=== PATIENT | female | born 1955 | race Caucasian/White ===

== ENCOUNTER 2019-02-27 08:15 | Outpatient (CLI) | payer MEDICARE, OTHER ==
[2019-02-27 08:54] LABS: Bilirubin Negative (Negative); Blood, Urine Negative (Negative); Glucose, Urine (Dipstick) Negative (Negative); Leukocyte Trace (Negative); Nitrite Negative (Negative); Protein, Urine (Dipstick) Negative (Neg-Trace); Urobilinogen 0.2 mg/dL (Less than 2)
[2019-02-27 09:01] LABS: #Eosinphils 0.1 thou/uL (0.0-0.7); #Lymphocytes 1.5 thou/uL (1.20-3.40); #Monocytes 0.5 thou/uL (0.11-0.59); #Neutrophils 2.3 thou/uL (1.40-6.50); %Eosinophils 2.6 % (0.0-10.0); %Lymphocytes 33.6 % (21.0-51.0); %Monocytes 12.1 % (0.0-10.0); %Neutrophils 50.8 % (42.0-75.0); Hemoglobin 15.4 g/dL (12.0-16.0); Mean Corpuscular HGB CONC 33.3 g/dL (32.0-36.0); Mean Corpuscular Hemoglobin 33.5 pg (27.0-31.0); Mean Platelet Volume 7.3 fL (7.4-10.4); Platelet Count 154 thou/uL (130-400); RBC Distribution Width 13.5 % (11.5-14.5); Red Blood Cell (RBC) Count 4.59 mill/uL (4.20-5.40); White Blood Cell (WBC) Count 4.5 thou/uL (4.8-10.8)
[2019-02-27 09:04] LABS: Clarity Slightly Cloudy (Clear)
[2019-02-27 09:20] LABS: ALT (SGPT) 59 U/L (8-55); AST (SGOT) 54 U/L (5-34); Albumin 4.1 g/dL (3.4-4.8); Alkaline Phosphatase 71 U/L (40-150); Anion Gap 19 mmol/L (10-20); BUN (Urea Nitrogen) 7 mg/dL (9.8-20.1); Bilirubin, Total 0.4 mg/dL (0.2-1.2); Calc. Creatinine Clearance 0 mL/min (70-130); Calcium 9.6 mg/dL (7.8-10.44); Carbon Dioxide 23 mmol/L (23-31); Cardiac Risk 2.6 (Less than 4.5); Chloride 101 mmol/L (98-107); Cholesterol 221 mg/dl (< 200 Desired); Estimated GFR-MDRD 88; Globulin 4.4 g/dL (2.4-3.5); Glucose 99 mg/dL (80-115); HDL Cholesterol 86 mg/dL (>60 Neg Risk); LDL Cholesterol, Calculated 104 mg/dL; Potassium 4.1 mmol/L (3.5-5.1); Protein, Total 8.5 g/dL (6.0-8.3); Sodium 139 mmol/L (136-145); Triglycerides 155 mg/dL (Less than 150)
[2019-02-27 09:42] LABS: Thyroid Stimulating Hormone 1.5067 uIU/mL (0.35-4.94)
--- NOTE | 2019-02-27 09:49 | RAD ---
CHEST 2 VIEWS: HISTORY: Preoperative cardiovascular examination. COMPARISON: None. FINDINGS: Lungs are hyperinflated. Heart size mildly enlarged. Some scarring in the lung bases. No pneumotho rax. No acute osseous abnormality. IMPRESSION: Chronic findings. No acute intrathoracic abnormality. POS: CET
[2019-02-27 10:34] LABS: Bacteria/HPF None Seen HPF (None Seen); Epithelial Cast None Seen LPF (None Seen); RBC/HPF 0-3 HPF (0-3); Squamous Epithelial 0-3 HPF (0-3); WBC/HPF 0-3 HPF (0-3)
[2019-02-27 11:32] LABS: Hemoglobin A1c 5.3 % (4.0-6.0)
[2019-02-27 12:15] LABS: Hep C IgG Ab Non-Reactive (NonReactive); Hep C Index 0.19 S/CO (0-0.79)
== END 2019-02-27 08:16 | disposition home or self-care (01) ==
LOC: SCSRAD 08:15
PROVIDERS: ATTEND Family Medicine
DX: Z01.810 Encounter for preprocedural cardiovascular examination (principal)
CPT/HCPCS: 36415; 71046; 80053; 80061; 81001; 83036; 84443; 85025; 86803